=== PATIENT | female | born 1945 | race Caucasian/White ===

== ENCOUNTER → 2017-05-18 | Outpatient (CLI) | payer MEDICARE, OTHER | LOC: M.RAD 15:29 | DX: Z13.820 Encounter for screening for osteoporosis (principal); N91.2 Amenorrhea, unspecified; Z78.0 Asymptomatic menopausal state ==

== ENCOUNTER → 2020-03-04 | Outpatient (CLI) | payer MEDICARE, OTHER ==
--- NOTE | 2020-03-04 11:16 | 2DMMODE ---
[place] [address] 2 D/M-MODE ECHOCARDIOGRAM Name: NINA TAMAYO Room: [facility]#: [id number] Admission: 03/04/20 Attend Phys: Vj Yepez Discharge: Date of : 49 Date of Service: 03/04/20 1116 Report #: [id number] THIS REPORT FOR: cc: Vj Yepez,Vj Higgins,Owen Graham MD [facility] ~ APPROVED REPORT Study performed: 03/04/2020 09:34:45 EXAM: Comprehensive 2D, Doppler, and color-flow Echocardiogram Patient Location: Out-Patient BSA: 2.03 HR: 90 bpm BP: 140/75 mmHg Other Information Study Quality: Good Indications Murmur 2D Dimensions IVSd: 12.45 (7-11mm) LVOT Diam: 20.07 (18-24mm) LVDd: 38.14 mm PWd: 11.06 (7-11mm) Ascending Ao: 27.79 (22-36mm) LVDs: 25.11 (25-40mm) Aortic Root: 29.66 mm Volumes Left Atrial Volume (Systole) LA ESV Index: 13.60 mL/m2 Aortic Valve AoV Peak Peter.: 1.42 m/s AO Peak Gr.: 8.04 mmHg LVOT Max P.79 mmHg AO Mean Gr.: 4.47 mmHg LVOT Mean P.37 mmHg LVOT Max V: 1.30 m/s AO V2 VTI: 26.04 cm LVOT Mean V: 0.84 m/s IRVIN (VTI): 3.05 cm2 LVOT V1 VTI: 25.06 cm Mitral Valve E/A Ratio: 0.64 [place] [address] 2 D/M-MODE ECHOCARDIOGRAM Name: NINA TAMAYO Room: [facility] [place]#: [id number] Admission: 03/04/20 Attend Phys: Vj Yepez Discharge: Date of : 49 Date of Service: 03/04/20 1116 Report #: [id number] MV Decel. Time: 215.48 ms MV E Max Peter.: 0.46 m/s MV PHT: 62.49 ms MVA (PHT): 3.52 cm2 TDI E/Lateral E': 4.18 E/Medial E': 7.67 Medial E' Peter.: 0.06 m/s Lateral E' Peter.: 0.11 m/s Pulmonary Valve PV Peak Peter.: 1.01 m/s PV Peak Gr.: 4.09 mmHg Left Ventricle The left ventricle is normal size. There is normal LV segmental wall motion. Mild concentric left ventricular hypertrophy. Left ventricular systolic function is normal. The left ventricular ejection fraction is within the normal range. LVEF is 60-65%. Grade I - abnormal relaxation pattern. Right Ventricle The right ventricle is normal size. The right ventricular systolic function is normal. Atria The left atrium size is normal. The right atrium size is normal. Aortic Valve Mild aortic valve sclerosis. No aortic regurgitation is present. There is no aortic valvular stenosis. Mitral Valve The mitral valve is normal in structure. There is trace mitral valve regurgitation noted. No evidence of mitral valve stenosis. Tricuspid Valve The tricuspid valve is normal in structure. There is trace tricuspid valve regurgitation noted. Pulmonic Valve Pulmonic valve is not well visualized. There is no pulmonic valvular regurgitation. Great Vessels The aortic root is normal in size. IVC is [place] [address] 2 D/M-MODE ECHOCARDIOGRAM Name: NINA TAMAYO Room: [facility]#: [id number] Admission: 03/04/20 Attend Phys: Vj Yepez Discharge: Date of : 49 Date of Service: 03/04/20 1116 Report #: [id number] collapses >50% with inspiration. Pericardium There is no pericardial effusion. <Conclusion> Mild concentric left ventricular hypertrophy. LVEF is 60-65%. <ELECTRONICALLY SIGNED> By: Owen De La Vega MD, FAC 03/04/20 1116 1116 111 Owen De La Vega MD, [facility] /INF
== END ==
LOC: M.ULTRA 09:05 → M.CRD 10:00
PROVIDERS: ATTEND Family Medicine
DX: I35.8 Other nonrheumatic aortic valve disorders (principal); K76.0 Fatty (change of) liver, not elsewhere classified; I49.9 Cardiac arrhythmia, unspecified; R01.1 Cardiac murmur, unspecified; U07.1 COVID-19